=== PATIENT | female | born 1995 ===

== ENCOUNTER → 2024-08-29 | Outpatient (CLI) | payer OTHER ==
[2024-08-29 20:02] LABS: Bacterial Vaginosis PCR Negative (NEGATIVE); Candida glabrata-krusei, PCR NOT DETECTED (NOT DETECT)
[2024-08-29 20:13] LABS: Candida Group, PCR DETECTED (NOT DETECT)
[2024-08-29 20:34] LABS: Chlamydia Trachomatis Vaginal NOT DETECTED (NOT DETECT); Neisseria Gonorrhoea Vaginal NOT DETECTED (NOT DETECT)
== END ==
LOC: LAB SHORT 18:31 → LAB 18:31
PROVIDERS: Family Medicine
DX: N89.8 Other specified noninflammatory disorders of vagina (principal)
CPT/HCPCS: 81515; 87491; 87591

== ENCOUNTER 2025-03-25 14:16 | Emergency (ER) | payer OTHER ==
[~2025-03-25] VITALS: Ht 172.7 cm; Wt 59.0 kg
[2025-03-25] MEDS ORDERED: propofoL 0.1 ML IV SCH (14:45)
[2025-03-25] MEDS ORDERED: Ketamine HCl 100 MG / ML 5ML Vial IV ONE (14:45)
[2025-03-25] MEDS ORDERED: Morphine Sulfate 4 MG/1 ML Injection IV ONE ×3 (14:45→16:35)
[2025-03-25] MEDS ORDERED: Propofol 10mg/ml 20 ml Vial (Procedural) IV ONE (14:55)
[2025-03-25] MEDS ORDERED: Morphine Sulfate 4 MG/1 ML Injection ONE (15:36)
[2025-03-25] MEDS ORDERED: HYDROmorphone HCl/Pf 1MG SYR IV ONE ×2 (17:05→19:10)
[2025-03-25] MEDS ORDERED: OXAYDO5 M1 PO (17:46)
[2025-03-25] MEDS ORDERED: RX Prepack 6 Tabs Oxycodone 5mg UD ONE ×2 (17:50→20:10)
== END 2025-03-25 20:34 | disposition home or self-care (01) ==
LOC: ER 14:16
DX: S82.451A Displaced comminuted fracture of shaft of right fibula, initial encounter for closed fracture (principal); S82.251A Displaced comminuted fracture of shaft of right tibia, initial encounter for closed fracture; W11.XXXA Fall on and from ladder, initial encounter
CPT/HCPCS: 27752; 73610; 73700; 76000; 96374; 96375; 96376; 99152; 99153; 99284-25; A9270; J1171; J2270; J2704